=== PATIENT | female | born 1970 | race Caucasian/White ===

== ENCOUNTER 2017-07-15 06:42 | Day surgery (SDC) | payer OTHER ==
[2017-07-15] MEDS ORDERED: LIDOCAINE 4% SOLUTION 50 ML BTL (08:34)
[2017-07-15] MEDS ORDERED: FENTAnyl 50 MCG/ML VIAL (08:52)
[2017-07-15] MEDS ORDERED: MIDAZOLAM 1 MG/ML 2 ML INJ (08:53)
== END 2017-07-15 09:34 | disposition home or self-care (01) ==
LOC: GIL 06:42
DX: K21.0 Gastro-esophageal reflux disease with esophagitis (principal)
CPT/HCPCS: 43239; 84703; 88305